=== PATIENT | female | born 2005 | race Caucasian/White ===

== ENCOUNTER 2024-03-04 17:00 | Emergency (ER) | payer SELFPAY ==
[~2024-03-04] VITALS: Ht 175.3 cm; Wt 91.0 kg
[2024-03-04 17:06] VITALS: BP 122/64; PULSE 87; RESP 18; TEMP 98.1; O2SAT 100
[2024-03-04 18:31] LABS: BASOPHILS % 0.2 % (0.0-2.0); EOSINOPHILS % 1.1 % (0.0-5.0); HEMATOCRIT. 38.9 % (36.0-48.0); LYMPHOCYTES % 13.3 % (20.0-50.0); MEAN CORPUSCULAR HEMOGLOBIN 29.6 pg (28.0-32.0); MEAN CORPUSCULAR HGB CONC 33.5 g/dL (31.0-37.0); MEAN CORPUSCULAR VOLUME 88.3 fL (81.0-99.0); MEAN PLATELET VOLUME 7.9 fl (7.4-10.4); MONOCYTES % 5.7 % (2.0-8.0); NEUTROPHILS % 79.7 % (40.0-76.0); PLATELET 263 x1000/uL (130-400); RED BLOOD CELL COUNT 4.41 mill/uL (4.2-5.4); RED CELL DISTRIBUTION WIDTH 13.4 % (11.6-14.6); WHITE BLOOD COUNT 10.4 x1000/uL (4.5-11.0)
[2024-03-04 18:35] LABS: CARBON DIOXIDE 26 mEq/L (21-32); CHLORIDE 104 mEq/L (98-107); POTASSIUM 3.7 mEq/L (3.5-5.1); SODIUM 137 mEq/L (136-145)
[2024-03-04 18:36] LABS: CALCIUM 9.4 mg/dL (8.7-10.4)
[2024-03-04 18:41] LABS: CREATININE 0.7 mg/dL (0.6-1.0); GLUCOSE 82 mg/dL (70-105); UREA NITROGEN BLOOD 7 mg/dL (9-23)
[2024-03-04 18:47] LABS: HCG SCREEN NEGATIVE
== END 2024-03-04 19:17 | disposition left against medical advice (07) ==
LOC: ER 17:00
DX: R10.9 Unspecified abdominal pain (principal); M54.9 Dorsalgia, unspecified
CPT/HCPCS: 36415; 80048; 84703; 85025; 99283